=== PATIENT | female | born 1970 | race Caucasian/White ===

== ENCOUNTER 2016-11-18 15:05 | Emergency (ER) | payer OTHER ==
--- NOTE | 2016-11-18 16:11 | ERNOTE ---
Lower Extremity HPI - Narrative Date of Service: 11/18/16 - General Lower Extremities Pain: knee: left - patient fell several times over last few daws and has pain and swelling Time Seen by Provider: 11/18/16 15:18 Source: patient Exam Limitations: no limitations - Immun/Allergies/Home Medications Immunizations: IMMUNIZATION HX Immunizations Up to Date Yes Allergies/Adverse Reactions: Allergies Allergy/AdvReac Type Severity Reaction Status Date / Time No Known Allergies Allergy Verified 11/18/16 15:20 Home Medications: HOME MEDICATIONS Atenolol [Tenormin] 50 mg PO BID 11/18/16 [Last Taken Unknown] Hydrochlorothiazide [Hydrodiuril] 25 mg PO DAILY 11/18/16 [Last Taken Unknown] Insulin Glargine,Hum.rec.anlog [Lantus] 20 units SC HS 11/18/16 [Last Taken Unknown] Levothyroxine Sodium [Synthroid] 200 mcg PO DAILY 11/18/16 [Last Taken Unknown] Lisinopril [Zestril] 10 mg PO DAILY 11/18/16 [Last Taken Unknown] Omeprazole Magnesium [Prilosec Otc] 20 mg PO DAILY 11/18/16 [Last Taken Unknown] traMADol HCL [Ultram] 50 mg PO QID #30 tablet 11/18/16 [Last Taken Unknown] - History of Present Illness Narrative: fell several times Occurred: yesterday Location of Incident: home Method of Injury: Reports: fell, twisted, direct blow Reason for Fall: Reports: tripped Loss of Consciousness: Reports: no loss of consciousness Modifying Factors - (Improves): Reports: rest Modifying Factors - (Worsens): Reports: movement Other Injuries: Reports: none Prior Treament: Reports: other - none Review of Systems - Review of Systems Constitutional: Present: See HPI EYE: Present: no symptoms reported ENT: Present: no symptoms reported Respiratory: Present: no symptoms reported Cardiology: Present: no symptoms reported Gastrointestinal/Abdominal: Present: no symptoms reported Genitourinary: Present: no symptoms reported Musculoskeletal: Present: See HPI, joint pain, joint swelling Skin: Present: no symptoms reported Neurological: Present: no symptoms reported Endocrine: Present: no symptoms reported Hematologic/Lymphatic: Present: no symptoms reported Psych: Present: no symptoms reported All Other Systems: All systems neg except as marked - Patient's Past Medical History Patient History - Medical: Diabetes Type 2 Insulin Dependent, GERD, Hypothyroidism Patient History - Cardiac/Respiratory: Hypertension, Hyperlipidemia Patient History - Cancer: No Hx of Cancer Patient History - Surgical Procedures: T & A Patient History - Other: None - Family History Family History:: no untoward family reactions to anesthesia, no familial bleeding tendencies - Social History Living Situations: home Psych History: No pertinent hx Smoking Status: Current every day smoker Have you smoked in the past 12 months: Yes Do you dip or chew tobacco: No Patient requests Smoking Cessation Consult: No Initiate information on Smoking Cessation: No Alcohol Use: none Drug Use: none - Immunizations Immunizations Up to Date: Yes Hx Pneumococcal Vaccination: No History of Influenza Vaccine: No Physical Exam - Physical Exam General Appearance: Present: moderate distress, anxious Head Exam: Present: normal inspection, no evidence of injury Eye Exam: Normal inspection: bilateral, PERRL: bilateral, EOMI: bilateral, Abnormal EOM: bilateral, Abnormal pupil: bilateral, Sclera injection: bilateral , Scleral icterus: bilateral, Eye drainage: bilateral, Eyelid inflammation: bilateral Ears, Nose, Throat: Present: normal ENT inspection Neck: Present: normal inspection Respiratory: Present: no respiratory distress, normal breath sounds, no accessory muscle use, chest nontender Cardiovascular/Chest: Present: regular rate, rhythm, no murmur, normal peripheral pulses Peripheral Pulses: N=norm/S=strong/W=weak/B=bound/A=absent: Carotid (R): Normal , Carotid (L): Normal, Radial (R): Normal, Radial (L): Normal, Femoral (R): Normal, Femoral (L): Normal, Dorsalis-pedis (R): Normal, Dorsalis-pedis (L): Normal Gastrointestinal/Abdominal: Present: normal bowel sounds, nontender, nondistended, soft, no organomegaly Rectal Exam: Present: nontender, normal rectal tone Back Exam: Present: normal inspection, normal range of motion, no CVA tenderness , no vertebral tenderness Extremity Exam: Present: bony tenderness, joint swelling Neurological Exam: Present: alert, oriented, normal mood/affect, no motor/ sensory deficits DTR: N=norm/NB=norm/brisk/A=abs/DD=dull/dimin/HC=hyperactive: Bicep (R): Normal , Bicep (L): Normal, Tricep (R): Normal, Tricep (L): Normal, Knee (R): Normal, Knee (L): Normal, Ankle (R): Normal, Ankle (L): Normal Skin Exam: Present: normal color, warm/dry Lymphatic Exam: Present: no adenopathy ED Progress - Vital Signs Vital Signs: Vital Signs 11/18/16 15:12 Temperature 36.3 C L Pulse Rate 64 Respiratory 12 Rate Blood Pressure 190/102 O2 Sat by Pulse 97 Oximetry - X-Ray X-Ray #1 X-Ray: knee - radiologist reports no fracture, osteoarthritis - Progress/Reassessment Chief Complaint: Lower Extremity Pain/ Injury Progress:: Unchanged - Transfer of Care Expected Disposition: Discharge Departure Clinical Impression: Sprain of knee - Departure Condition: Fair Instructions: Knee Pain, Knee Pain, [id number] Prescriptions: traMADol HCL [Ultram] 50 mg PO QID #30 tablet
[2016-11-18 16:39] VITALS: BP 175/76
== END 2016-11-18 16:45 | disposition home or self-care (01) ==
LOC: ER 15:05
DX: S83.92XA Sprain of unspecified site of left knee, initial encounter (principal); K21.9 Gastro-esophageal reflux disease without esophagitis; E03.9 Hypothyroidism, unspecified; E11.9 Type 2 diabetes mellitus without complications; Z79.4 Long term (current) use of insulin; I10 Essential (primary) hypertension; F17.200 Nicotine dependence, unspecified, uncomplicated; W01.0XXA Fall on same level from slipping, tripping and stumbling without subsequent striking against object, initial encounter